=== PATIENT | male | born 1935 | race Caucasian/White ===

== ENCOUNTER → 2018-03-30 15:16 | Outpatient (CLI) | payer MEDICARE, BC ==
[2016-02-27 07:15] VITALS: BMI 24.4
[~2018-03-30 15:16] MED LIST: ALPHAGAN 0.2%5 ML LEFT EYE; ASPIRIN EC81 M1 PO; COREG6.25 MG PO; DIOVAN HCT 320/1 TA2 PO; GLUCOPHAGE1000 MG PO; ISOSORBIDE MONO30 M1 PO; LANTUS SOL100 UNIT/1 SC; LATANOPROST TP; NORVASC10 MG PO; NOVOLOG100 U/M1 SC; PLAVIX75 MG PO; TRUSOPT 2 % OPT10 ML LEFT EYE; XALATAN 0.0052.5 ML LEFT EYE; ZOCOR20 MG PO
== END | disposition home or self-care (01) ==
LOC: D.US 15:16
DX: I65.23 Occlusion and stenosis of bilateral carotid arteries (principal)

== ENCOUNTER 2019-07-16 10:38 | Inpatient (IN) | payer MEDICARE, BC ==
[~2019-07-16] VITALS: Ht 167.6 cm; Wt 75.0 kg
[2019-07-16 10:44] VITALS: BP 173/60
[2019-07-16 11:14] LABS: BASOPHILS 0.2 % (0-2); EOSINOPHILS 2.4 % (0-7); HEMATOCRIT 32.5 % (42.0-54.0); IMMATURE GRANULOCYTES 0.1 % (0-5); LYMPHOCYTES 18.7 % (15-50); MCH 31.8 pg (26.0-34.0); MCHC 33.8 g/dL (31.0-37.0); MCV 93.9 fL (80.0-100.0); MEAN PLATELET VOLUME 10.5 fL (7.4-10.4); MONOCYTES 5.6 % (2-11); PLATELET COUNT 192 10x3/uL (130-400); RBC 3.46 10x6/uL (4.20-6.10); RDW 14.9 % (11.5-14.5); WBC 9.3 10x3/uL (4.8-10.8)
[2019-07-16 11:30] LABS: ALBUMIN 3.8 g/dL (3.4-5.0); ALKALINE PHOSPHATASE 62 U/L (46-116); ALT (SGPT) 19 U/L (10-68); BILIRUBIN - TOTAL 0.51 mg/dL (0.2-1.3); CALC OSMOLALITY 284 mosm/kg (275-300); CALCIUM 8.8 mg/dL (8.5-10.1); CARBON DIOXIDE 25.7 mmol/L (21.0-32.0); CHLORIDE - SERUM 102 mmol/L (98-107); CREATININE - SERUM 1.3 mg/dL (0.6-1.3); GLUCOSE 196 mg/dL (74-106); POTASSIUM - SERUM 4.1 mmol/L (3.5-5.1); PROTEIN - SERUM 6.8 g/dL (6.4-8.2); SODIUM 139 mmol/L (136-145); UREA NITROGEN 18 mg/dL (7-18); eGFR NON AFRICAN AMERICAN 55 mL/min (90-120)
[2019-07-16 11:41] LABS: CKMB 2.8 U/L (0.0-3.6); CREATINE KINASE 97 UL (21-232); TROPONIN-I 0.027 ng/mL (0.000-0.060)
[2019-07-16 12:25] VITALS: BP 176/66
[2019-07-16 13:00] VITALS: BP 221/84; BMI 26.7
[2019-07-16 14:09] VITALS: Ht 167.6 cm; Wt 75.0 kg
[2019-07-16 17:39] VITALS: BP 190/67
[2019-07-16 19:55] VITALS: BP 187/68
[2019-07-17] VITALS (7 sets, daily range): BP systolic 102–177; BP diastolic 45–69
[2019-07-17 06:00] LABS: BASOPHILS 0.4 % (0-2); EOSINOPHILS 2.7 % (0-7); HEMOGLOBIN 10.7 g/dL (13.5-17.5); IMMATURE GRANULOCYTES 0.2 % (0-5); LYMPHOCYTES 21.9 % (15-50); MCH 31.8 pg (26.0-34.0); MCHC 34.5 g/dL (31.0-37.0); MEAN PLATELET VOLUME 10.1 fL (7.4-10.4); MONOCYTES 6.1 % (2-11); NEUTROPHILS 68.7 % (40-80); PLATELET COUNT 206 10x3/uL (130-400); RBC 3.37 10x6/uL (4.20-6.10); RDW 14.9 % (11.5-14.5); WBC 8.2 10x3/uL (4.8-10.8)
[2019-07-17 06:16] LABS: CALC OSMOLALITY 283 mosm/kg (275-300); CALCIUM 8.8 mg/dL (8.5-10.1); CARBON DIOXIDE 28.3 mmol/L (21.0-32.0); CHLORIDE - SERUM 101 mmol/L (98-107); GLUCOSE 184 mg/dL (74-106); SODIUM 139 mmol/L (136-145); UREA NITROGEN 15 mg/dL (7-18); eGFR NON AFRICAN AMERICAN 75 mL/min (90-120)
[2019-07-17 07:23] LABS: APPEARANCE CLEAR (CLEAR); BILIRUBIN NEGATIVE (NEGATIVE); COLOR YELLOW (YELLOW); GLUCOSE 100 mg/dL (NEGATIVE); KETONE NEGATIVE (NEGATIVE); NITRITE NEGATIVE (NEGATIVE); PROTEIN NEGATIVE (NEGATIVE); SPECIFIC GRAVITY 1.005 (1.005-1.020); UROBILINOGEN NORMAL (NORMAL)
[2019-07-17 08:53] LABS: % SATURATION 15 % (15-55); IRON 50 ug/dl (35-150); TOTAL IRON BIND CAPACITY 313 ug/dl (260-445); UNSAT IRON BIND CAPACITY 263 ug/dl (150-375)
[2019-07-17] MEDS ORDERED: LISINOPRIL10 MG PO (11:18)
[2019-07-17] MEDS ORDERED: CYANOCOBAL1000 MCG/4 SC (11:19)
[2019-07-18 00:18] VITALS: BP 186/87
[2019-07-18 04:00] VITALS: BP 174/63
[2019-07-18 07:29] LABS: CALC OSMOLALITY 281 mosm/kg (275-300); CALCIUM 8.5 mg/dL (8.5-10.1); CHLORIDE - SERUM 101 mmol/L (98-107); GLUCOSE 187 mg/dL (74-106); POTASSIUM - SERUM 4.2 mmol/L (3.5-5.1); SODIUM 138 mmol/L (136-145); UREA NITROGEN 16 mg/dL (7-18); eGFR NON AFRICAN AMERICAN 75 mL/min (90-120)
[2019-07-18 07:56] LABS: BASOPHILS 0.1 % (0-2); EOSINOPHILS 1.2 % (0-7); HEMATOCRIT 31.7 % (42.0-54.0); HEMOGLOBIN 10.9 g/dL (13.5-17.5); IMMATURE GRANULOCYTES 0.4 % (0-5); LYMPHOCYTES 15.3 % (15-50); MCH 31.4 pg (26.0-34.0); MCHC 34.4 g/dL (31.0-37.0); MCV 91.4 fL (80.0-100.0); MEAN PLATELET VOLUME 10.4 fL (7.4-10.4); MONOCYTES 7.4 % (2-11); NEUTROPHILS 75.6 % (40-80); PLATELET COUNT 216 10x3/uL (130-400); RBC 3.47 10x6/uL (4.20-6.10); RDW 14.8 % (11.5-14.5); WBC 8.2 10x3/uL (4.8-10.8)
[2019-07-18 08:32] VITALS: BP 154/64
[2019-07-18 17:42] VITALS: BP 168/65
[2019-07-18 19:40] VITALS: BP 177/71
[2019-07-19 00:37] VITALS: BP 154/63
[2019-07-19 04:00] VITALS: BP 175/70
[2019-07-19 07:09] LABS: BASOPHILS 0.4 % (0-2); EOSINOPHILS 2.1 % (0-7); HEMATOCRIT 32.2 % (42.0-54.0); HEMOGLOBIN 11.2 g/dL (13.5-17.5); IMMATURE GRANULOCYTES 0.4 % (0-5); LYMPHOCYTES 24.2 % (15-50); MCH 31.9 pg (26.0-34.0); MCHC 34.8 g/dL (31.0-37.0); MCV 91.7 fL (80.0-100.0); MEAN PLATELET VOLUME 10.2 fL (7.4-10.4); MONOCYTES 7.4 % (2-11); NEUTROPHILS 65.5 % (40-80); PLATELET COUNT 225 10x3/uL (130-400); RBC 3.51 10x6/uL (4.20-6.10); RDW 14.9 % (11.5-14.5); WBC 8.5 10x3/uL (4.8-10.8)
[2019-07-19 07:23] LABS: CALC OSMOLALITY 282 mosm/kg (275-300); CALCIUM 8.9 mg/dL (8.5-10.1); CARBON DIOXIDE 29.8 mmol/L (21.0-32.0); CHLORIDE - SERUM 103 mmol/L (98-107); GLUCOSE 93 mg/dL (74-106); SODIUM 141 mmol/L (136-145); UREA NITROGEN 19 mg/dL (7-18); eGFR NON AFRICAN AMERICAN 75 mL/min (90-120)
[2019-07-19 08:00] VITALS: BP 157/73
--- NOTE | 2019-07-19 11:14 | MORECARE ---
CASE MANAGEMENT DISCHARGE SUMMARY PATIENT: SUZANNA PEARSON UNIT: [id number] ADM DATE: 07/18/19 AGE: 84 : 33 SEX: M ROOM/BED: D.1207 AUTHOR: TOMEKA BERRY PHYSICIAN: REFERRING PHYSICIAN: MAUREEN TAY MD DATE OF SERVICE: 07/19/19 Discharge Plan Patient Name: SUZANNA PEARSON [facility] [facility] 1935 Planned Disposition: Home Anticipated Discharge Date: 07/21/19 Discharge Date: Expected LOS: 3 Initial Reviewer: [email or web address] Initial Review Date: 07/16/2019 Generated: 07/19/19 12:13 pm Coverage Notice Reviewer: [id number] Maya Trotter Notice Issued Date-Time: 07/18/2019 10:37 Notice Type: Medicare Outpatient Observation Notice Notice Delivered To: Patient Relationship to Patient: Self Wire Tinner Name: Delivery Method: HAND - Hand Delivered Bree Days: Prior Verbal Notification: Recipient Understood Notice: Yes Recipient Signature: Yes Med Rec Note Co-signed by Attending: Coverage Notice Comment: Patient Name: SUZANNA PEARSON Page [id number] at 1114 All edits/amendments must be made on the electronic document DICTATION DATE: 07/19/19 111 INDEPENDENT CONSULTANT: MOR 07/19/19 1113 RPT#: [id number] DC DATE: STATUS: ADM IN [place] [address] [place] [address] END OF REPORT
--- NOTE | 2019-07-19 11:22 | MORECARE ---
CASE MANAGEMENT DISCHARGE SUMMARY PATIENT: SUZANNA TERRAZAS UNIT: [id number] ADM DATE: 07/18/19 AGE: 84 : 33 SEX: M ROOM/BED: D.1207 AUTHOR: KRISTI,DOC PHYSICIAN: REFERRING PHYSICIAN: MAUREEN TAY MD DATE OF SERVICE: 07/19/19 Discharge Plan Patient Name: SUZANNA TERRAZAS Facility: [facility]:[place] : 1935 Planned Disposition: Home Anticipated Discharge Date: 07/21/19 Discharge Date: Expected LOS: 3 Initial Reviewer: [email or web address] Initial Review Date: 07/16/2019 Generated: 07/19/19 12:21 pm Comments DCP- Discharge Planning Updated by [email or web address]: Izzy Flowers on 07/19/19 10:[address] DC PLAN: Return home with independently. ANTICIPATED DC NEEDS: Denied DC needs. CM met with patient and his to complete initial dc planning assessment. CM educated patient and his on the CM role and verbal consent given by patient to complete assessment. CM verified patient's address, phone number, and emergency contact phone numbers. Patient lives at home with his and is independent in his care. He is forgetful at time according to his . At discharge patient plans to return home with his and feels this is a safe discharge. CM discussed availability of home health, rehab services, and medical equipment. Patient denied known discharge needs at this time. Patient is ambulating 200 ft with physical therapy at this time. Patient reports his will transport him home at time of discharge. CM will continue to follow and will assist as needed with dc plans/needs. Izzy Flowers RN, [facility] DCPIA - Discharge Planning Initial Assessment Updated by [email or web address]: Izzy Flowers on 07/19/19 11:16 am * Is the patient Alert and Oriented? Yes * How many steps to enter\exit or inside your home? 10 * PCP Dr. Graf * [facility] [address] * Preadmission Environment Home with Family * ADLs Independent * Equipment Glucometer * List name and contact numbers for known caregivers / representatives who currently or will assist patient after discharge: Rustonzaina Terrazas - - [phone] T[place] Terrazas - son - [phone] * Verbal permission to speak to the caregivers and representatives has been obtained from the patient. Yes * Community resources currently utilized None * Additional services required to return to the preadmission environment? No * Can the patient safely return to the preadmission environment? Yes * Has this patient been hospitalized within the prior 30 days at any hospital? No Coverage Notice Reviewer: [id number] Maya Trotter Notice Issued Date-Time: 07/18/2019 10:37 Notice Type: Medicare Outpatient Observation Notice Notice Delivered To: Patient Relationship to Patient: Self Manager [employer] Communications Name: Delivery Method: HAND - Hand Delivered Bree Days: Prior Verbal Notification: Recipient Understood Notice: Yes Recipient Signature: Yes Med Rec Note Co-signed by Attending: Coverage Notice Comment: Last DP export: 07/19/19 10:14 am Patient Name: SUZANNA TERRAZAS Page [id number] at 1122 All edits/amendments must be made on the electronic document DICTATION DATE: 07/19/19 112 WARP HAULER: MOR 07/19/19 1121 RPT#: [id number] DC DATE: STATUS: ADM IN [facility] [address] [place] [address] END OF REPORT
[2019-07-19 11:57] VITALS: BP 184/62
[2019-07-19 15:29] VITALS: BP 165/52
[2019-07-19 17:30] VITALS: BP 177/65
--- NOTE | 2019-07-20 09:51 | MORECARE ---
CASE MANAGEMENT DISCHARGE SUMMARY PATIENT: SUZANNA TERRAZAS UNIT: [id number] ADM DATE: 07/18/19 AGE: 84 : 33 SEX: M ROOM/BED: D.1207 AUTHOR: KRISTI,DOC PHYSICIAN: REFERRING PHYSICIAN: MAUREEN TAY MD DATE OF SERVICE: 07/20/19 Discharge Plan Patient Name: SUZANNA TERRAZAS Facility: [facility]:[place] : 1935 Planned Disposition: Home Anticipated Discharge Date: 07/21/19 Discharge Date: 07/19/2019 Expected LOS: 3 Initial Reviewer: [email or web address] Initial Review Date: 07/16/2019 Generated: 07/20/19 10:50 am Comments DCP- Discharge Planning Updated by [email or web address]: Izzy Flowers on 07/19/19 10:[address] DC PLAN: Return home with independently. ANTICIPATED DC NEEDS: Denied DC needs. CM met with patient and his to complete initial dc planning assessment. CM educated patient and his on the CM role and verbal consent given by patient to complete assessment. CM verified patient's address, phone number, and emergency contact phone numbers. Patient lives at home with his and is independent in his care. He is forgetful at time according to his . At discharge patient plans to return home with his and feels this is a safe discharge. CM discussed availability of home health, rehab services, and medical equipment. Patient denied known discharge needs at this time. Patient is ambulating 200 ft with physical therapy at this time. Patient reports his will transport him home at time of discharge. CM will continue to follow and will assist as needed with dc plans/needs. Izzy Flowers RN, [facility] DCPIA - Discharge Planning Initial Assessment Updated by [email or web address]: Izzy Flowers on 07/19/19 11:16 am * Is the patient Alert and Oriented? Yes * How many steps to enter\exit or inside your home? 10 * PCP Dr. Graf * [facility] [address] * Preadmission Environment Home with Family * ADLs Independent * Equipment Glucometer * List name and contact numbers for known caregivers / representatives who currently or will assist patient after discharge: Shaunna Terrazas - - [phone] [place] Maya carine - [phone] * Verbal permission to speak to the caregivers and representatives has been obtained from the patient. Yes * Community resources currently utilized None * Additional services required to return to the preadmission environment? No * Can the patient safely return to the preadmission environment? Yes * Has this patient been hospitalized within the prior 30 days at any hospital? No Coverage Notice Reviewer: [id number] Maya Trotter Notice Issued Date-Time: 07/18/2019 10:37 Notice Type: Medicare Outpatient Observation Notice Notice Delivered To: Patient Relationship to Patient: Self Net Application Support Specialist Name: Delivery Method: HAND - Hand Delivered Bree Days: Prior Verbal Notification: Recipient Understood Notice: Yes Recipient Signature: Yes Med Rec Note Co-signed by Attending: Coverage Notice Comment: Last DP export: 07/19/19 10:22 am Patient Name: SUZANNA TERRAZAS Page 16469 at 0951 All edits/amendments must be made on the electronic document DICTATION DATE: 07/20/1950 VARIETY SAW OPERATOR: MOR 07/20/1952 RPT#: [id number] DC DATE:07/19/19 STATUS: DIS IN [facility] [address] [place] [address] END OF REPORT
== END 2019-07-19 18:17 | disposition home or self-care (01) | DRG 312 ==
LOC: D.ER 10:38 → D.M3 12:21 → OBSVTIME 12:21 → D.M3 12:21
PROVIDERS: Family Medicine; ADMIT Internal Medicine Nephrology; ATTEND Internal Medicine Nephrology
DX: R55 Syncope and collapse (principal); N17.9 Acute kidney failure, unspecified; D64.9 Anemia, unspecified; I10 Essential (primary) hypertension; E78.5 Hyperlipidemia, unspecified; I25.10 Atherosclerotic heart disease of native coronary artery without angina pectoris; E11.9 Type 2 diabetes mellitus without complications

== ENCOUNTER → 2020-05-22 12:08 | Outpatient (CLI) | payer MEDICARE, BC ==
[2019-07-16 14:09] VITALS: BMI 26.7
[~2020-05-22 12:08] MED LIST changes: +CYANOCOBAL1000 MCG/4 SC; +LISINOPRIL10 MG PO
== END | disposition home or self-care (01) ==
LOC: D.US 02-27 08:30
PROVIDERS: ATTEND Internal Medicine Cardiovascular Disease
DX: I65.23 Occlusion and stenosis of bilateral carotid arteries (principal)

== ENCOUNTER → 2021-02-12 11:00 | Outpatient (CLI) | payer MEDICARE, BC ==
[2019-07-16 14:09] VITALS: BMI 26.7
[2021-02-12 11:41] LABS: ALBUMIN 3.9 g/dL (3.4-5.0); ANION GAP 10.6 mmol/L (8-16); BILIRUBIN - TOTAL 0.55 mg/dL (0.2-1.3); CALCIUM 9.3 mg/dL (8.5-10.1); CREATININE - SERUM 1.1 mg/dL (0.6-1.3); POTASSIUM - SERUM 4.6 mmol/L (3.5-5.1); PROTEIN - SERUM 7.4 g/dL (6.4-8.2)
== END | disposition home or self-care (01) ==
LOC: D.MRI 09:00
PROVIDERS: ATTEND Family Medicine
DX: C61 Malignant neoplasm of prostate (principal); E11.65 Type 2 diabetes mellitus with hyperglycemia